=== PATIENT | female | born 1985 | race Caucasian/White ===

== ENCOUNTER 2019-10-15 22:27 | Emergency (ER) | payer OTHER, SELFPAY ==
[~2019-10-15] VITALS: Ht 165.1 cm; Wt 59.0 kg
[2019-10-15 22:49] VITALS: Ht 165.1 cm; Wt 59.0 kg
[2019-10-15 23:00] VITALS: BP 137/94
== END 2019-10-15 23:00 | disposition home or self-care (01) ==
LOC: ED 22:27
DX: R50.9 Fever, unspecified (principal); Z20.828 Contact with and (suspected) exposure to other viral communicable diseases; Z88.0 Allergy status to penicillin
CPT/HCPCS: U0003-CS

== ENCOUNTER 2019-12-15 08:47 | Emergency (ER) | payer OTHER ==
[~2019-12-15] VITALS: Ht 162.6 cm; Wt 60.8 kg
[2019-12-15 09:07] VITALS: Ht 162.6 cm; Wt 60.8 kg
[2019-12-15 09:32] VITALS: BP 100/67
== END 2019-12-15 09:32 | disposition home or self-care (01) ==
LOC: ED 08:47
DX: K08.89 Other specified disorders of teeth and supporting structures (principal); Z88.0 Allergy status to penicillin